=== PATIENT | male | born 1965 | race Caucasian/White ===

== ENCOUNTER → 2023-06-08 12:04 | Outpatient (REF) | payer OTHER, SELFPAY | LOC: RAD 12:04 | PROVIDERS: ATTENDING PHYSICIAN Nurse Practitioner | DX: M25.562 Pain in left knee (principal) | CPT/HCPCS: 73564 ==

== ENCOUNTER 2023-07-05 12:38 | Outpatient (RCR) | payer OTHER, SELFPAY | END 2023-07-12 14:28 | disposition home or self-care (01) | LOC: RPT 12:38 | PROVIDERS: ATTENDING PHYSICIAN Orthopaedic Surgery; FAMILY PHYSICIAN Internal Medicine | DX: M17.12 Unilateral primary osteoarthritis, left knee (principal); M76.62 Achilles tendinitis, left leg; Z73.6 Limitation of activities due to disability; R26.89 Other abnormalities of gait and mobility; M25.562 Pain in left knee | CPT/HCPCS: 97110; 97140; 97161 ==

== ENCOUNTER 2023-08-02 06:16 | Day surgery (SDC) | payer OTHER, SELFPAY ==
[2023-07-25 06:52] VITALS: BMI 42.9
[2023-08-02] VITALS (9 sets, daily range): BP systolic 109–134; BP diastolic 68–76; BMI 42.9
[2023-08-02] MEDS: CELEBREX 200 MG PO (09:32)
[2023-08-02] MEDS: TYLENOL 1000 MG PO (09:32)
[2023-08-02] MEDS: NORMOSOL-R 1000 IV (09:33)
== END 2023-08-02 14:57 | disposition home or self-care (01) ==
LOC: SDS 06:16
PROVIDERS: ATTENDING PHYSICIAN Specialist; FAMILY PHYSICIAN Internal Medicine
DX: S83.242A Other tear of medial meniscus, current injury, left knee, initial encounter (principal); X58.XXXA Exposure to other specified factors, initial encounter
CPT/HCPCS: 29881; 36415; 93005

== ENCOUNTER 2023-08-10 11:33 | Outpatient (RCR) | payer OTHER, SELFPAY | END 2023-08-10 23:59 | disposition home or self-care (01) | LOC: RPT 11:33 | PROVIDERS: ATTENDING PHYSICIAN Specialist; FAMILY PHYSICIAN Internal Medicine | DX: R26.89 Other abnormalities of gait and mobility (principal); S83.232S Complex tear of medial meniscus, current injury, left knee, sequela; Z73.6 Limitation of activities due to disability | CPT/HCPCS: 97110; 97161 ==

== ENCOUNTER 2023-08-24 08:48 | Outpatient (RCR) | payer OTHER, SELFPAY | END 2023-08-24 23:59 | disposition home or self-care (01) | LOC: RPT 08:48 | PROVIDERS: ATTENDING PHYSICIAN Specialist; FAMILY PHYSICIAN Internal Medicine | DX: S83.232S Complex tear of medial meniscus, current injury, left knee, sequela (principal); R26.89 Other abnormalities of gait and mobility; Z73.6 Limitation of activities due to disability | CPT/HCPCS: 97110; 97140 ==